=== PATIENT | male | born 1965 | race Caucasian/White ===

== ENCOUNTER 2022-09-20 10:23 | Day surgery (SDC) | payer OTHER, SELFPAY ==
[2022-09-20] VITALS (10 sets, daily range): BP systolic 116–148; BP diastolic 75–95; PULSE 50–75; RESP 11–20; TEMP 36.3–36.6; O2SAT 94–100; BMI 27.7
--- NOTE | 2022-09-20 | PATH_ITS ---
[facility] Accession Number: [id number] No. of containers..02 Tissue . 01 Material submitted: . PART A: colon - TRANSVERSE POLYP PART B: colon - DESCENDING POLYP . 01 Diagnosis: A. Transverse Colon, Polyp: Tubular adenoma. . B. Descending Colon Polyp: Hyperplastic polyp. MRV 09/30/2022 1533 Local . 01 Electronically signed: . Мария Garza MD, Pathologist NPI- [id number] . 01 Gross description: . Part A: TRANSVERSE POLYP: Received in formalin is 1 fragment(s) of mishra, soft tissue measuring 0.3 x 0.3 x 0.3 cm submitted entirely in 1 cassette(s) Part B: DESCENDING POLYP: Received in formalin is 1 fragment(s) of mishra, soft tissue measuring 0.6 x 0.5 x 0.4 cm submitted entirely in 1 cassette(s) /MANNY 09/26/2022 0050 Local . 01 Pathologist provided ICD-10: D12.3 . 01 CPT . 245930, 295486 Specimen Comment: A courtesy copy of this report has been sent to [facility] Performed at: 01 [facility] [address] [place] [address] [address], [place], [place] [id number] MD Christofer Tam MD Phone: [phone]
[2022-09-20] MEDS: LACTATED RINGERS 1,000 ML 42 ML IV ×2 (10:48→13:25)
--- NOTE | 2022-09-20 12:21 | PM.HP.1 ---
History of Present Illness History of Present Illness Date Patient Seen: 09/20/22 Time Patient Seen: 12:24 [place] [facility]: 56 yo M presents today for his 1st screening colonoscopy. He is never had a colonoscopy before. No family history of colon cancer, no concerning symptoms. Questions were answered he would like to proceed [facility] Social History household members: spouse Smoking Status: Never smoker alcohol intake: current Meds Home Medications and Allergies Home Medications Medication Instructions Recorded Confirmed Type No Known Home Medications 08/30/21 09/20/22 History Allergies Allergy/AdvReac Type Severity Reaction Status Date / Time No Known Drug Allergies Allergy Verified 09/20/22 10:35 Exam Vital Signs (past 8 hours): - 09/20/22 10:37 Temperature 97.3 F L Pulse Rate 75 Respiratory Rate 16 Blood Pressure 148/95 H Pulse Oximetry 100 Oxygen Delivery Method Room Air Oxygen Delivery Method Room Air Const General: cooperative, healthy appearing and comfortable Nutritional Appearance: average body habitus HENMT Head: normal to inspection Eyes General: appearance normal, both eyes and all related structures Resp Effort & Inspection: normal respiratory effort and able to speak in complete sentences GI Palpation: soft and No tender Skin General: no rashes or lesions noted Assessment & Plan Assessment and plan (1) Colon cancer screening: Status: Acute Assessment & Plan narrative: Presents today for screening colonoscopy I discussed the risks benefits and alternatives including but not limited to perforation of the colon and an incomplete exam he fully understands these risks and would like to proceed.
--- NOTE | 2022-09-20 13:52 | P.OP.COLON_ITS ---
Operative Date/Time/Diagnoses Date of procedure: 09/20/22 Time of procedure: 13:52 Pre-op diagnosis: Screening for colon cancer. No family history. First colonoscopy Post-op diagnosis: same Procedure & Clinicians Study performed: Colonoscopy and biopsy Same procedure as scheduled: Yes Indications: Screening for colon cancer average risk Surgeon: Kimberlyn Levine Procedure Notes Procedure in detail: Patient was taken to the endoscopy suite and placed in a left lateral decubitus position. A time-out was performed. With the help of anesthesiologist conscious sedation was induced and monitored throughout the case. A digital rectal exam was performed and there were no masses or strictures. The colonoscope was introduced into the anal canal and advanced through to the cecum. A photograph of the appendiceal orifice was obtained. The bowel prep was good [place] bowel prep score of 2. The scope was then withdrawn for a total of 13 minutes. There was a small transverse colon polyp and another small polyp in the descending colon both of which were removed with biopsy forceps and sent for pathology. The scope was then retroflexed and a photograph of the internal hemorrhoidal piles was obtained. Specimen(s): other (1. Transverse colon polyp 2. Descending colon polyp) Post-procedure Plan for aftercare: Pending pathology results in 7-10 years would be the follow-up range with no family history of colon cancer as long as no other concerning symptoms develop in the interim. I do strongly recommend fiber supplementation for any patient with colon polyps.
== END 2022-09-20 14:30 | disposition home or self-care (01) ==
PROVIDERS: PCP Family Medicine; Referring Provider Surgery; Visit Provider Surgery
PROC: 0DJD8ZZ Inspection of Lower Intestinal Tract, Via Natural or Artificial Opening Endoscopic (ICD-10-PCS; CPT 45378; principal; 2022-09-20 11:30)
DX: Z12.11 Encounter for screening for malignant neoplasm of colon (principal); D12.3 Benign neoplasm of transverse colon
CPT/HCPCS: 45380; J2704

== ENCOUNTER → 2022-11-09 10:34 | Outpatient (CLI) | payer OTHER, SELFPAY ==
[2022-11-09 11:04] LABS: Add Manual Diff / Slide Review NO; Basophils Absolute Auto 100 /uL (0-100); Basophils Percent Auto 0.9 % (0-2); Eosinophils Absolute Auto 200 /uL (0-450); Eosinophils Percent Auto 2.8 % (2-4); Hematocrit 46.7 % (41-53); Hemoglobin 15.8 g/dL (13.5-17.5); Lymphocytes Absolute Auto 2700 /uL (1100-4500); Lymphocytes Percent Auto 42.1 % (25-40); Mean Corpuscular HGB Conc 33.8 % (30-36); Mean Corpuscular Hemoglobin 29.9 PG (26-34); Mean Corpuscular Volume 88.4 fL (80-100); Monocytes Absolute Auto 400 /uL (0-900); Monocytes Percent Auto 6.5 % (3-14); Neutrophils Absolute Auto 3100 /uL (1500-7000); Neutrophils Percent Auto 47.7 % (50-75); Platelet Count 201 X10^3/uL (150-400); Red Blood Cell Count 5.28 X10^6/uL (4.5-5.9); Red Cell Distribution Width 13.6 % (11.6-14.8); White Blood Cell Count 6.4 X10^3/uL (4.5-11.0)
[2022-11-09 11:17] LABS: Prothrombin Time 11.6 SECONDS (10.1-12.7)
[2022-11-09 11:19] LABS: PTT Partial Thromboplastin Tim 36 SECONDS (26-36)
[2022-11-09 11:23] LABS: BUN Creatinine Ratio 19.2 (6-22); Blood Urea Nitrogen 15 mg/dL (9-20); Calcium 9.6 mg/dL (8.4-10.2); Carbon Dioxide 28 mmol/L (22-32); Chloride 106 mmol/L (98-107); Estimated Glomerular Filt Rate > 60 mL/min (>60); Glucose 91 mg/dL (70-100); HEMOLYSIS < 15 (0-50); Potassium 4.8 mmol/L (3.4-5.1); Sodium 138 mmol/L (137-145)
== END ==
PROVIDERS: PCP Family Medicine; Referring Provider Orthopaedic Surgery Foot and Ankle Surgery; Visit Provider Orthopaedic Surgery Foot and Ankle Surgery
DX: Z01.818 Encounter for other preprocedural examination (principal); Z01.812 Encounter for preprocedural laboratory examination; Z51.81 Encounter for therapeutic drug level monitoring
CPT/HCPCS: 36415; 80048; 85025; 85610; 85730; 93005

== ENCOUNTER 2023-01-31 06:44 | Day surgery (SDC) | payer OTHER, SELFPAY ==
[2023-01-28 10:12] VITALS: BMI 27.1
[2023-01-31] VITALS (8 sets, daily range): BP systolic 120–135; BP diastolic 64–84; PULSE 66–87; RESP 12–98; TEMP 36.2–37.2; O2SAT 93–98; BMI 26.9
--- NOTE | 2023-01-31 07:07 | PM.PREOP ---
Pre-operative Note Interval Note History & Physical reviewed/Exam performed by Physician: Yes Changes to H&P: No
[2023-01-31] MEDS: LACTATED RINGERS 1,000 ML 42 ML IV ×2 (07:39→11:44)
--- NOTE | 2023-01-31 08:06 | P.OP_ITS ---
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 Post-op diagnosis: same Procedure & Clinicians Procedure: Right hindfoot deformity correction Triple arthrodesis CPT code 95109 Dywer closing wedge calcaneal osteotomy CPT code 66002 separate site modifier 59 Dorsal closing wedge 1st TMT fusion CPT code CPT code 93732 Tendo-Achilles lengthening CPT code 21175 separate site modifier 59 Bone graft autograft CPT code 69738 from calcaneus to arthrodesis site Tarsal tunnel release CPT code 63373 Medial ankle flexor tendon lengthening FDL, released posterior tibialis tendon CPT code 96633 This procedure was performed with a modifier 22 for increased difficulty. This was a very severe rigid cavovarus deformity that required greater than twice the time of typical triple arthrodesis and required separate lateralizing calcaneal osteotomy and a separate dorsiflexion 1st TMT fusion and extensive tendon lengthenings and releases to obtain correction. The tarsal tunnel was released due to the necessity for severe deformity correction this release reduces tension on the medial neurovascular structure during deformity correction. During the operation, the services of a physician hand frame surgical elastic knitter were medically indicated and necessary to provide the exposure of the operative site for the surgical procedure and to maintain the limb in a proper position to carry out the operation safely and efficiently. Without a qualified sourcing assistant being present this would extended the operative procedure and made the procedure technically more difficult to perform. Same procedure as scheduled: Yes Indications: Patient is a 57-year-old male with a right cavovarus foot deformity. He is chronic pain and weightbear as on his lateral foot. His hindfoot is rigid. He has been indicated for deformity correction with triple arthrodesis and will require separate lateral closing wedge calcaneal osteotomy to correct the hindfoot deformity as well as tendo-Achilles lengthening and medial tendon releases and lengthenings. He is failed conservative treatment. The risks and benefits of the procedure have been discussed with the patient and given the opportunity to ask questions. The risks of surgery include but are not limited to infection, malunion, nonunion, persistence of pain, damage to nerves and blood vessels, posttraumatic arthritis, DVT, PE, coardiopulmonary complications and . The patient expressed a thorough understanding of the risks and benefits of surgery and has elected to proceed. Consent was signed. During the operation, the services of a physician hand frame surgical elastic knitter were medically indicated and necessary to provide the exposure of the operative site for the surgical procedure and to maintain the limb in a proper position to carry out the operation safely and efficiently. Without a qualified sourcing assistant being present this would extended the operative procedure and made the procedure technically more difficult to perform. Surgeon: Yue Franklin Junior Art Director: Ami Oliver Anesthesia Type: General, Peripheral nerve block and Local Operative Notes Findings: Severe cavovarus deformity -rigid hindfoot-correction with triple arthrodesis -there was residual hindfoot varus separate wire closing wedge lateral calcaneal osteotomy was performed -there was residual plantar flexion of the 1st ray and a dorsiflexion closing wedge 1st TMT fusion was performed -Achilles contracture. This was lengthened using a [place] triple nelly section -due to the severity of correction required extensive medial releases were required releasing the posterior tibialis tendon and then lengthening the FDL tendon Closure Type: primary Specimen(s): none sent Prosthetic devices, grafts, tissues, transplants, or devices: Eckert 28 --5.5 headed cannulated screw the lateral closing wedge calcaneal osteotomy Eckert 28--5.0 headless cannulated screw calcaneal cuboid fusion Eckert 28 5.0 headless cannulated screw talonavicular fusion Eckert 28-5.5 headed cannulated screw for talonavicular fusion Eckert 28 7.0 headed cannulated screw for subtalar fusion x2 Eckert 2818 x 18 mm great white staple and 3.5 cannulated screw 1st TMT fusion Estimated Blood Loss (mL): 200 Blood products transfused: none Tourniquet time (min): 129 Procedure in detail: Right hindfoot deformity correction The patient was seen in the preoperative area the site of surgery was marked informed consent confirmed. The patient was brought back to the operating room by the anesthesia team after regional block was performed by the anesthesia team. A well-padded thigh tourniquet was placed. A Poe was placed due to anticipated length of the procedure. Right lower extremity was prepped and draped in standard sterile fashion. A formal time-out procedure was performed confirming the patient's side and site of surgery administration of appropriate preoperative antibiotic. Antibiotics were appropriately redosed at appropriate timing. Attention was turned to the right lower extremity the Esmarch was used for exsanguination and the tourniquet was raised on the thigh to 250 mmHg. They stayed elevated 429 minutes then was released for approximately 1 hour and then elevated for another 1 hour. Tendo-Achilles lengthening: Attention 1st started with the equinus contracture. This was addressed using a [place] style tendo-Achilles lengthening through 3 small incisions on the posterior Achilles space proximally 2 cm apart with the distal and proximal incisions nelly dissecting the tendon to the medial side and the middle hemisections of the lateral side for the varus deformity. Next attention was turned to the wire closing wedge calcaneal osteotomy. A oblique incision was marked out over the heel using C-arm as guidance for the trajectory. And then K-wires were introduced for a planned closing wedge osteotomy. The incision was then made and carefully taken down through the subcutaneous tissues to the level of the bone. This was posterior to the approximate location of the sural nerve was not encountered during this incision. Periosteum was cleaned off the bone and a large saw was used to remove a lateral wedge osteotomy from the lateral calcaneus. This bone was set up side and then used in the triple arthrodesis. Elevators and lamina spreaders were used to release the soft tissues medially to attempt to slide and close the lateral heel. The heel was able to be closed down in a Norton style closing wedge osteotomy and this was temporarily held with a K-wire with expected final closure after the triple arthrodesis was prepared.-once the triple arthrodesis was completed a 5 .5 screw was placed across the heel osteotomy securing the closing wedge wire osteotomy Triple arthrodesis : Next attention was turned to the triple arthrodesis. This was 1st exposed medially due to the equinus contracture. A long medial incision was made from posterior medial malleolus down to the cuneiform just past the navicular. The subcutaneous tissues were dissected. The posterior tibialis ten don sheath was opened. Posterior tibialis tendon was released from the navicular tuberosity as this was a deforming force. The talonavicular joint was identified and was opened and debrided using the osteotomes. Additionally the medial subtalar joint was opened and mobilized. Tarsal tunnel release: Dissection was taken more posteriorly over the tarsal tunnel and the flexor retinaculum was released to decompress the tarsal tunnel due to the severity of the deformity correction required and to avoid a iatrogenic a tarsal tunnel syndrome from deformity correction. Flexor tendon lengthening: Once this was released carefully protecting the neurovascular bundles attention was returned to the flexor tendons and the FDL tendon was exposed and the tendon was then Z lengthened. This was repaired at the end of the case and a length and fashion. Triple arthrodesis: Then attention was turned laterally for the sinus tarsi incision from the tip of the fibula towards the base of the 4th metatarsal this allowed lateral exposure to the subtalar joint and expose the calcaneal cuboid joint. All remaining cartilage was denuded from the calcaneocuboid joint, subtalar joint and talonavicular joint using the osteotomes and curette and bur. Once this was completed the fenestrated drill was used to further prepare the donor sites back to bleeding cancellous bone. Next 5 cc of aloe sink d emineralized bone matrix was mixed with additional autograft obtained from the calcaneus and this was placed into the subtalar calcaneocuboid and talonavicular joints. The subtalar joint was brought into Margie version to neutral alignment and provisionally pinned. This was checked and then fixed with a 7 0.0 cannulated screw from dorsal to plantar. Next the talonavicular joint was de rotated and then provisionally pinned and checked in AP and lateral planes this was fixed with 2 cannulated screws from the paragon set. Extensive efforts were made in correction and the talonavicular joint was very difficult to mobilize. But alignment was obtained that improved foot alignment and provided a plantigrade foot on intraoperative examination. Additionally the calcaneocuboid joint was pinned and fixed with a cannulated screw. Once this was completed there was still some excessive plantar flexion of the 1st ray and this was expected due to the severity of the deformity so the incision medially was extended distally to the 1st tarsometatarsal joint and this was then exposed and a closing wedge fusion was created. The wedge was removed using the saw in a dorsal closing fashion then bent up and pinned in place and fixed with a 3 .5 cannulated screw and a dorsal Nitinol staple dorsally to create a dorsal closing wedge effect with continuous compression.once this was completed Attention was returned to the flexor tendon which was fixed in its lengthened fashion. Additionally a reinforcing 2-0 FiberWire suture was used from the distal tibialis anterior repairing back to the 1st TMT medially where it had to be partially elevated for joint exposure. Then attention was returned to fixing the guidewire closing wedge calcaneal osteotomy obtaining a neutral hindfoot alignment and securing this with a cannulated screw from the paragon 28 set. Final fluoroscopic images were obtained in the AP mortise lateral and hindfoot alignment views demonstrated deformity correction with improved lateral axial ankle mortise and AP foot images compared to preoperative and appropriate placement of hardware. Tourniquet had been released. Hemostasis was achieved. The wounds were thoroughly irrigated and closed with 2-0 Vicryl 4-0 Monocryl and 3-0 nylon suture. Patient was placed into a sterile dressing with Xeroform gauze Webril bulky Marshall cotton and a posterior and U splint. The patient was awoken from anesthesia and taken to the recovery unit. All counts were correct. There were no immediate complications from this procedure. Complications: none Post-operative Condition: stable Disposition: PACU Plan for aftercare: Nonweightbearing 8 weeks. Elevate above the heart level as much as possible 1st 2 weeks after surgery to address swelling help with incision healing. DVT prophylaxis with aspirin 325 mg daily for 6 weeks. This is the same as for the baby aspirin daily. Follow up in orthopedic clinic for wound check 2-3 weeks. Possible suture removal and conversion to nonweightbearing cast.
[2023-01-31] MEDS: CEFAZOLIN 2 GM/100 ML PREMIX 100 ML IV ×2 (08:10→12:10)
--- NOTE | 2023-01-31 08:13 | SUR.PREOP ---
Block start time [0730] . Monitoring initiated and maintained throughout procedure. Oxygen and medications given per anesthesiologist instructions. Patient remained stable throughout procedure, no adverse reactions noted. Block end time [0752].
--- NOTE | 2023-01-31 08:42 | SUR.OPER ---
Supine on padded OR bed, head on pillow, arms secured on padded arm boards at <90 degrees abduction, legs uncrossed, safety belt at waist, tape over blanket over lower left leg. Right leg draped free. Gel bump under right hip. Blankets under right lower leg
[2023-01-31] MEDS: BUPIVACAINE 0.25% (PF) 30 ML, EPINEPHrine 0.15 MG INJ (08:59)
--- NOTE | 2023-01-31 13:31 | DI.RAD.S_ITS ---
PROCEDURE: XR FOOT RT MIN 3V INDICATIONS: RT FOOT RECONSTRUCTION TECHNIQUE: 7 views of the foot were acquired. COMPARISON: [facility], CR, XR FOOT 1 OR 2 VIEWS WEIGHT BEARING BILATERAL, 10/30/2022, 15:29. [facility] [place], CR, XR ANKLE 3 VIEWS WEIGHT BEARING RIGHT, 07/24/2022, 11:23. FINDINGS: 7 intraosseous fluoroscopy images demonstrate arthrodeses in in ankle with surgical screws traversing the subtalar joint, talo navicular joint and calcaneal cuneiform joint. There is osteotomy also a surgical screw within the calcaneus.. IMPRESSION: Fluoroscopy for arthrodesis and osteotomy. Dictated by: Yenny Moreland M.D. on 02/01/2023 at 8:58 Approved by: Yenny Moreland M.D. on 02/01/2023 at 9:02
== END 2023-01-31 17:16 | disposition home or self-care (01) ==
PROVIDERS: PCP Family Medicine; Referring Provider Orthopaedic Surgery Foot and Ankle Surgery; Visit Provider Orthopaedic Surgery Foot and Ankle Surgery
PROC: (CPT 28715; principal; 2023-01-31 07:45)
PROC: (CPT 27685; 2023-01-31 07:45)
DX: M21.861 Other specified acquired deformities of right lower leg (principal); M19.071 Primary osteoarthritis, right ankle and foot; M77.8 Other enthesopathies, not elsewhere classified; G89.18 Other acute postprocedural pain
CPT/HCPCS: 28715; 28740; 20902; 28035; 27685; 27606; 28300; 64450; 73630; 76000; J0171; J0690; J1100; J1170; J1885; J2250; J2405; J2704; J3010

== ENCOUNTER → 2023-07-08 16:13 | Outpatient (CLI) | payer OTHER, SELFPAY ==
[2023-07-08 17:37] LABS: Add Manual Diff / Slide Review NO; Basophils Absolute Auto 100 /uL (0-100); Basophils Percent Auto 0.9 % (0-2); Eosinophils Absolute Auto 200 /uL (0-450); Eosinophils Percent Auto 2.5 % (2-4); Hematocrit 44.2 % (41-53); Hemoglobin 15.2 g/dL (13.5-17.5); Lymphocytes Absolute Auto 3100 /uL (1100-4500); Mean Corpuscular HGB Conc 34.5 % (30-36); Mean Corpuscular Hemoglobin 29.7 PG (26-34); Mean Corpuscular Volume 86.1 fL (80-100); Monocytes Absolute Auto 400 /uL (0-900); Monocytes Percent Auto 5.4 % (3-14); Neutrophils Absolute Auto 4200 /uL (1500-7000); Neutrophils Percent Auto 52.2 % (50-75); Platelet Count 229 X10^3/uL (150-400); Red Blood Cell Count 5.13 X10^6/uL (4.5-5.9); Red Cell Distribution Width 13.8 % (11.6-14.8)
[2023-07-08 18:00] LABS: Blood Urea Nitrogen 16 mg/dL (9-20); C-Reactive Protein Quant < 0.5 mg/dL (<1.0); Calcium 9.3 mg/dL (8.4-10.2); Carbon Dioxide 29 mmol/L (22-32); Chloride 106 mmol/L (98-107); Estimated Glomerular Filt Rate > 60 mL/min (>60); Glucose 90 mg/dL (70-100); HEMOLYSIS < 15 (0-50); Potassium 4.9 mmol/L (3.4-5.1); Sodium 140 mmol/L (137-145)
[2023-07-08 18:01] LABS: Erythrocyte Sedimentation Rate 2 MM/HR (0-15)
== END ==
LOC: LAB 16:14
PROVIDERS: PCP Family Medicine; Referring Provider Orthopaedic Surgery Foot and Ankle Surgery; Visit Provider Orthopaedic Surgery Foot and Ankle Surgery
DX: T81.31XA Disruption of external operation (surgical) wound, not elsewhere classified, initial encounter (principal); M79.671 Pain in right foot
CPT/HCPCS: 36415; 80048; 85025; 85651; 86140

== ENCOUNTER → 2023-08-06 11:23 | Outpatient (CLI) | payer OTHER, SELFPAY ==
--- NOTE | 2023-08-06 11:24 | DI.CT.S_ITS ---
PROCEDURE: CT LE RT WO CON INDICATIONS: RIGHT ANKLE PAIN/EVAL FOR UNION AFTER FUSIONS TECHNIQUE: Noncontrast 1-1.5 mm axial sections acquired from above the tibiotalar joint to the bottom of the calcaneus, with coronal and sagittal reformats. COMPARISON: [facility] [place], [place], XR ANKLE 3 VIEWS WEIGHT BEARING RIGHT, 07/24/2022, 11:23. [facility] [place], CR, XR FOOT 1 OR 2 VIEWS WEIGHT BEARING BILATERAL, 10/30/2022, 15:29. [facility] [place], CR, XR FOOT 3+ VIEWS RIGHT, 03/18/2023, 15:05. [facility] [place], CR, XR FOOT 3 VIEWS WEIGHT BEARING RIGHT, 04/15/2023, 11:41. [facility] [place], CR, XR FOOT 3 VIEWS WEIGHT BEARING RIGHT, 05/27/2023, 14:45. [facility] [place], CR, XR ANKLE 1 OR 2 VIEWS WEIGHT BEARING BILATERAL, 07/08/2023, 15:19. [facility] [place], CR, XR FOOT 3 VIEWS WEIGHT BEARING RIGHT, 07/08/2023, 15:13. FINDINGS: Image quality: Excellent. Bones: Patient is status post subtalar fusion and fusion of talonavicular joint as well as calcaneocuboid joint with surgical hardware in place. There is also fixation of 1st TMT joint. No evidence of hardware loosening or failure is seen. Likely posterior calcaneal osteotomy with less than 50% partial bony union at osteotomy site. There is greater than 50% bony union at calcaneocuboid joint and talonavicular joint surrounding the surgical screws. There is greater than 50% bony union is achieved at 1st TMT joint adjacent to the surgical hardware. Less than 50% bony union at subtalar joint adjacent to the fusion hardware is seen. Moderate to severe osteoarthritic changes are noted throughout midfoot and hindfoot joints and mild forefoot joint osteoarthritic changes also seen. Extensive subcortical cystic changes are noted throughout talar dome suggestive of osteochondral injuries. No acute fracture or dislocation. Soft tissues: There is diffuse soft tissue edema and swelling throughout midfoot and hindfoot. Small to moderate tibiotalar joint effusion is seen, no calcified intra-articular loose bodies. No soft tissue mass or drainable fluid collection. No full-thickness tendon rupture. IMPRESSION: 1. Extensive surgical fusion at subtalar joint, talonavicular joint, calcaneocuboid joint and 1st TMT joint with surgical hardware in place. There is also posterior calcaneal osteotomy. Various degrees of partial bony union at the above-mentioned joints as described above. No definite hardware loosening or failure. No acute fracture or dislocation. 2. Moderate to severe osteoarthritic changes throughout rest of the midfoot and hindfoot joints. Suggestion of extensive osteochondral injuries involving weight-bearing portion of talar dome. 3. Small to moderate tibiotalar joint effusion, no gross calcified intra-articular loose bodies. No full-thickness ankle tendon rupture. No soft tissue mass or drainable fluid collection. Dictated by: Nick Shay M.D. on 08/06/2023 at 16:33 Approved by: Nick Shay M.D. on 08/06/2023 at 16:44
== END ==
PROVIDERS: PCP Family Medicine; Referring Provider Orthopaedic Surgery Foot and Ankle Surgery; Visit Provider Orthopaedic Surgery Foot and Ankle Surgery
DX: M25.571 Pain in right ankle and joints of right foot (principal); M25.474 Effusion, right foot; Z98.1 Arthrodesis status
CPT/HCPCS: 73700

== ENCOUNTER → 2023-09-13 10:58 | Outpatient (CLI) | payer OTHER, SELFPAY ==
--- NOTE | 2023-09-13 | DI.CT.S_ITS ---
PROCEDURE: CT LE RT WO CON INDICATIONS: ARTHRITIS OF RT ANKLE TECHNIQUE: Noncontrast 1-1.5 mm axial sections acquired from above the tibiotalar joint to the bottom of the calcaneus, with coronal and sagittal reformats. COMPARISON: [facility], CT, CT LE RT WO CON, 08/06/2023, 11:51. FINDINGS: Image quality: Excellent. Bones: No visualized fracture or dislocation. Status post subtalar fusion as well as talonavicular fusion. Surgical hardware in the calcaneal cuboid joint as well as 1st TMT fusion is present. Hardware is intact without hardware fracture or periprosthetic lucency to suggest loosening. Alignment is stable. Surgical changes reflecting posterior calcaneal osteotomy with incomplete fusion. Unchanged diffusion sub incomplete osseous fusion at the subtalar joint. Significant arthritic changes are present within the mid and hindfoot. Subcortical cystic change consistent with osteochondral injury are present in the talar dome without change. Osteopenia is present. Soft tissues: Soft tissue edema is present relatively unchanged. No calcified and check your loose bodies or soft tissue masses. IMPRESSION: Unchanged appearance of significant arthritic and postsurgical change as above. Dictated by: Kathy Moses M.D. on 09/14/2023 at 16:33 Approved by: Kathy Moses M.D. on 09/14/2023 at 17:00
== END ==
PROVIDERS: PCP Family Medicine; Referring Provider Orthopaedic Surgery Foot and Ankle Surgery; Visit Provider Orthopaedic Surgery Foot and Ankle Surgery
DX: M19.071 Primary osteoarthritis, right ankle and foot (principal)
CPT/HCPCS: 73700

== ENCOUNTER → 2023-11-22 10:40 | Outpatient (CLI) | payer OTHER, SELFPAY ==
[2023-11-22 11:09] LABS: Add Manual Diff / Slide Review NO; Basophils Absolute Auto 0 /uL (0-100); Basophils Percent Auto 0.7 % (0-2); Eosinophils Absolute Auto 200 /uL (0-450); Eosinophils Percent Auto 2.4 % (2-4); Hemoglobin 15.9 g/dL (13.5-17.5); Lymphocytes Absolute Auto 2900 /uL (1100-4500); Lymphocytes Percent Auto 39.1 % (25-40); Mean Corpuscular HGB Conc 33.8 % (30-36); Mean Corpuscular Hemoglobin 29.9 PG (26-34); Mean Corpuscular Volume 88.6 fL (80-100); Monocytes Absolute Auto 500 /uL (0-900); Monocytes Percent Auto 6.3 % (3-14); Neutrophils Absolute Auto 3800 /uL (1500-7000); Neutrophils Percent Auto 51.5 % (50-75); Platelet Count 200 X10^3/uL (150-400); Red Blood Cell Count 5.31 X10^6/uL (4.5-5.9); Red Cell Distribution Width 13.6 % (11.6-14.8); White Blood Cell Count 7.3 X10^3/uL (4.5-11.0)
[2023-11-22 11:23] LABS: Alanine Aminotransferase 28 IU/L (<50); Albumin 4.2 g/dL (3.5-5.0); Albumin Globulin Ratio 1.4 (1.0-2.8); Alkaline Phosphatase 85 U/L (38-126); Aspartate Aminotransferase 26 IU/L (17-59); BUN Creatinine Ratio 22.2 (6-22); Bilirubin Total 0.9 mg/dL (0.2-1.3); Blood Urea Nitrogen 18 mg/dL (9-20); Calcium 9.9 mg/dL (8.4-10.2); Carbon Dioxide 31 mmol/L (22-32); Chloride 106 mmol/L (98-107); Estimated Glomerular Filt Rate > 60 mL/min (>60); Globulin 2.9 g/dL (1.7-4.1); Glucose 95 mg/dL (70-100); HEMOLYSIS < 15 (0-50); Potassium 5.3 mmol/L (3.4-5.1); Sodium 139 mmol/L (137-145); Total Protein 7.1 g/dL (6.3-8.2)
== END ==
PROVIDERS: PCP Family Medicine; Referring Provider Orthopaedic Surgery Foot and Ankle Surgery; Visit Provider Orthopaedic Surgery Foot and Ankle Surgery
DX: Z01.818 Encounter for other preprocedural examination (principal); Z01.812 Encounter for preprocedural laboratory examination
CPT/HCPCS: 36415; 80053; 85025

== ENCOUNTER 2023-12-17 06:42 | Day surgery (SDC) | payer OTHER, SELFPAY ==
[2023-12-15 12:18] VITALS: BMI 27.1
[2023-12-17] VITALS (9 sets, daily range): BP systolic 90–129; BP diastolic 60–84; PULSE 57–76; RESP 8–17; TEMP 36.1–36.7; O2SAT 95–99; BMI 26.3
--- NOTE | 2023-12-17 | DI.RAD.S_ITS ---
PROCEDURE: XR ANKLE RT 2V INDICATIONS: RIGHT TOTAL ANKLE REPLACEMENT TECHNIQUE: 3 views of the ankle were acquired. COMPARISON: [facility] ([place]), CR, XR ANKLE RT MIN 3V, 07/03/2022, 16:28. [facility], CT, CT LE RT WO CON, 09/13/2023, 11:02. [facility], CT, CT LE RT WO CON, 08/06/2023, 11:51. Findings and impression: Scattered fixation screws in the foot. Intraoperative fluoroscopic images obtained for ankle replacement. Please see operative note for full details. Approved by: Juanjo Ortega M.D. on 12/17/2023 at 12:59
[2023-12-17] MEDS: ACETAMINOPHEN 325 MG TABLET 975 MG PO (07:16)
--- NOTE | 2023-12-17 07:16 | PM.PREOP ---
Pre-operative Note Interval Note History & Physical reviewed/Exam performed by Physician: Yes Changes to H&P: No
[2023-12-17] MEDS: LACTATED RINGERS 1,000 ML 42 ML IV ×2 (07:17→10:24)
[2023-12-17] MEDS: CELECOXIB 200 MG CAPSULE PO (07:17)
--- NOTE | 2023-12-17 07:26 | SUR.OPER ---
Supine on padded OR bed, head on pillow, arms secured on padded arm boards at <90 degrees abduction, legs uncrossed, safety belt at thigh, operative leg resting on stack of blankets. non op leg taped down
--- NOTE | 2023-12-17 07:32 | P.OP_ITS ---
Operative Date/Time/Diagnoses Date of procedure: 12/17/23 Time of procedure: 08:00 Pre-op diagnosis: Right ankle arthritis Retained orthopedic hardware Post-op diagnosis: same Procedure & Clinicians Procedure: Total ankle arthroplasty, right CPT code 74579 Removal of hardware separate incision modifier 59 CPT code 99498 Same procedure as scheduled: Yes Indications: Patient is a 58-year-old male with a severe cavovarus deformity and end-stage hindfoot and ankle arthritis he presents for a 2nd stage of his right lower extremity reconstruction either previous triple arthrodesis for cavus and hindfoot varus reconstruction and now presents for treatment of his end-stage ankle arthritis with total ankle arthroplasty and partial hardware removed. The risks and benefits of the procedure have been discussed with the patient and given the opportunity to ask questions. The risks of surgery include but are not limited to infection, malunion, nonunion, persistence of pain, damage to nerves and blood vessels, posttraumatic arthritis, DVT, PE, coardiopulmonary complications and . The patient expressed a thorough understanding of the risks and benefits of surgery and has elected to proceed. Consent was signed. Surgeon: Yue Franklin Best Second Jobs: Rishabh Weber Anesthesia Type: General, Peripheral nerve block and Local Operative Notes Findings: 10 degree varus deformity of the ankle. Retained hindfoot fusion hardware. Selected screws were removed to facilitate the total ankle arthroplasty. Including separate incision for medial talonavicular screw removal. In bone total ankle arthroplasty the was implanted. Closure Type: primary Specimen(s): none sent Prosthetic devices, grafts, tissues, transplants, or devices: Bridgette Inbone total ankle arthroplasty Tibia tray size 5 long Top 16 mm, middle 16 mm, middle 16 mm, base 18 mm Talus size 4 Poly 10 mm polyp Estimated Blood Loss (mL): 100 Tourniquet time (min): 130 Procedure in detail: The patient was seen in the preoperative area the site of surgery was marked informed consent confirmed. This was the right lower extremity. Final questions were answered. The patient was also seen by the anesthesiologist and a peripheral nerve block was placed for postoperative pain control. The patient was brought back to the operating room by the anesthesia team positioned supine on the operative table. All bony prominences were well padded. A well-padded thigh tourniquet was placed. The ipsilateral thigh bump was placed. A General anesthesia was administered. A Poe catheter was placed for the duration of the procedure. This was removed at the end of the procedure. The right lower extremities prepped and draped in the standard sterile fashion with a prescub then standard prep. The right lower extremity was then draped in the standard sterile fashion. Formal time-out procedure was performed confirming the patient's side and site of surgery administration of appropriate preoperative antibiotics which in this case 2 g of Ancef. All were in agreement. Implants were in the room and available. Attention was then turned to the right lower extremity an Esmarch bandage was used for exsanguination the tourniquet was elevated to 250 mmHg. Standard anterior approach to the ankle was drawn out on the leg approximately 12 cm incision was taken about 1 cm lateral to the tibial crest and extended longitudinally bisecting the tibiotalar joint extending to the talonavicular joint. This was taken down through the skin and subcutaneous tissues care was taken to isolate and protect the superficial peroneal nerve branch. Next the extensor retinaculum was opened and tagged with an 0 Vicryl for later repair. The EHL tendon sheath was opened and the EHL and neurovascular bundle were retracted laterally and the tibialis anterior was kept in its sheath and retracted medially. This brought us down directly on the anterior tibia. Dissection was taken all the way to the talonavicular joint to expose the talus. The capsule was divided and retracted. The joint demonstrated end-stage tibiotalar arthritis with large anterior distal tibial spurs. The Bovie cautery and elevators were used to remove the periosteum along the anterior tibia and expose the joint. Gelpi and Weitlaner retractors were used to protect the EHL and neurovascular bundle. The talus was mobilized. The retained anterior to posterior subtalar screw was exposed and removed using the screwdriver for the paragon 28 monster screw. Hardware removal with A separate incision was made medially to address the medial directed talonavicular screw dissection was taken down to the screw head and the screwdriver was used to remove this paragon 28 screw. Then a separate incision was made on the plantar foot to remove the inferior 2 superior subtalar screw this was removed with a paragon 28 screwdriver without difficulty. Then attention was returned to the total ankle arthroplasty. The inbone prophecy guides were applied 1st to the tibia. And pinned in place. Alignment was checked. Then gutter pins were placed in the distal tibia was cut. This was divided and removed in the standard fashion. First removing the anterior half of the distal tibia section and then splitting the posterior half and using the Cloward and rongeur to remove the remaining bone. Prophecy guide for the talus was then placed. And pinned in place. But was not fitting well due to the abnormal anatomy of the talus therefore the cut guide was used and pinned in place using fluoroscopic guidance then Saw was used to make the flat cut talus cut. Saw was used around the back to clean up residual prominence posteriorly. Next attention was turned distally and the spacer block was placed and the guide for the plantar incision was applied. Then the plantar incision was made in the foot dissection down to the bone. Intramedullary drill was advanced through the calcaneus talus and tibia in a centered fashion in the guides. At this point reaming was completed. We started with a 12 mm Reamer then irrigated and then reamed 16, to just press fit the base. A 16 selected a top stem and 2 ---16 mid stems and a base stem of 18 for this patient. This was felt to appropriately and have a good fit for the bone quality. Next the Reamer was removed and the wound was irrigated. The tibial tray size was measured and a 5 long was selected. Then the tibial stems were opened and the tibial stem was implanted in the standard fashion. This was confirmed appropriate alignment and bony contact on AP and lateral imaging. Gutters were checked and were clear after residual lateral talar bone was removed. Talar dome trial was placed 4 was trialed. The final trial size of 4 talus with 10 mm poly had a good fit without overhang this was selected and then pinned in place. The flat cut talar implant guide was then pinned in place and the pegs drilled. The guide was then removed. The bone was irrigated. The talar implant was implanted in the standard fashion. Good bony contact was noted on AP and lateral views. A trial poly 10 mm was placed. Radiographic and clinical alignment demonstrated no evidence of gutter impingement. Range of motion was checked clinically and fluoroscopically on AP and lateral views in dorsiflexion plantar flexion without appropriate range of motion. Without any need for additional ligamentous regino ncing. Next day final poly 10 mm was selected. This was placed in the standard fashion. Final fluoroscopic x-rays were obtained demonstrating appropriate range of motion in implant placement and alignment. The tourniquet was released the wound was irrigated. Hemostasis was achieved. The wound was closed in layers with 0 Vicryl in the deep capsule. 2-0 PDS was used to close the retinaculum providing an excellent tight closure. 4-0 Monocryl was placed subcutaneous followed by 3-0 nylon. 3-0 nylon was used to close the foot incision. 10 cc of 0.25% Marcaine was used as a local anesthetic after the incision was closed. Well-padded dressing was placed with Xeroform, 4 x 4 gauze, Webril, bulky Marshall cotton, posterior and U splint was applied. Drapes removed the patient was woken from anesthesia and taken to PACU in good condition. All counts were correct. There no immediate complications from this procedure Complications: none Post-operative Condition: stable Disposition: PACU Plan for aftercare: Nonweightbearing right lower extremity. Aspirin for DVT prophylaxis. Follow up in 2-3 weeks in [facility].
--- NOTE | 2023-12-17 07:58 | SUR.PREOP ---
Block start time [0734] . Monitoring initiated and maintained throughout procedure. Oxygen and medications given per anesthesiologist instructions. Patient remained stable throughout procedure, no adverse reactions noted. Block end time [0748].
[2023-12-17] MEDS: CEFAZOLIN 2 GM/100 ML PREMIX 100 ML IV ×2 (08:01→10:58)
[2023-12-17] MEDS: BUPIVACAINE 0.25% (PF) 60 ML, EPINEPHrine 0.3 MG INJ (08:43)
[2023-12-17] MEDS: TRANEXAMIC ACID 1,000 MG in SODIUM CHLORIDE 0.9% 100 ML 200 MG IV (11:12)
[2023-12-17] MEDS: ONDANSETRON 4 MG/2 ML INJ IV ×2 (12:37→14:10)
[2023-12-17 12:46] LABS: BUN Creatinine Ratio 20.5 (6-22); Blood Urea Nitrogen 15 mg/dL (9-20); Calcium 8.7 mg/dL (8.4-10.2); Carbon Dioxide 24 mmol/L (22-32); Chloride 107 mmol/L (98-107); Estimated Glomerular Filt Rate > 60 mL/min (>60); Glucose 128 mg/dL (70-100); HEMOLYSIS < 15 (0-50); Potassium 3.9 mmol/L (3.4-5.1); Sodium 138 mmol/L (137-145)
[2023-12-17] MEDS: hydrOXYzine 50 MG/ML INJ 25 MG IM (14:10)
[2023-12-17] MEDS: METOCLOPRAMIDE 10 MG/2 ML INJ IV (14:17)
== END 2023-12-17 14:41 | disposition home or self-care (01) ==
PROVIDERS: PCP Family Medicine; Referring Provider Orthopaedic Surgery Foot and Ankle Surgery; Visit Provider Orthopaedic Surgery Foot and Ankle Surgery
PROC: (CPT 27702; principal; 2023-12-17 07:45)
PROC: (CPT 27702; 2023-12-17 07:45)
DX: M19.071 Primary osteoarthritis, right ankle and foot (principal); G89.18 Other acute postprocedural pain; M25.774 Osteophyte, right foot
CPT/HCPCS: 27702; 20680; 64450; 73600; 76000; 80048; C1776; J0171; J0330; J0690; J1171; J2250; J2405; J2704; J2765; J3010; J3410